=== PATIENT | male | born 1965 | race Caucasian/White ===

== ENCOUNTER 2024-05-08 07:34 | Day surgery (SDC) | payer BC ==
[~2024-05-08] VITALS: Ht 182.9 cm; Wt 108.6 kg
[~2024-05-08 07:34] MED LIST: ATOR40TA PO; Aspir 8181 MG PO; HYDCHL12.5 PO; Lactated Ringer's 1,000 ML IV ONE; propofoL 50 ML IV ONE
[2024-05-08] MEDS ORDERED: Lactated Ringer's 1,000 ML IV ONE (08:32)
[2024-05-08 10:06] VITALS: BP 114/84
== END 2024-05-08 10:03 | disposition home or self-care (01) ==
LOC: ORSCSDS 07:34
PROVIDERS: Specialist
PROC: 0DBM8ZX Excision of Descending Colon, Via Natural or Artificial Opening Endoscopic, Diagnostic (ICD-10-PCS; principal; 2024-05-08 08:45)
DX: Z12.11 Encounter for screening for malignant neoplasm of colon (principal); D12.4 Benign neoplasm of descending colon; K64.8 Other hemorrhoids; Z80.0 Family history of malignant neoplasm of digestive organs; I10 Essential (primary) hypertension; E78.5 Hyperlipidemia, unspecified; Z79.82 Long term (current) use of aspirin; Z79.899 Other long term (current) drug therapy
CPT/HCPCS: 88305; J2704; J7120